=== PATIENT | male | born 1970 | race Caucasian/White ===

== ENCOUNTER 2016-09-05 13:49 | Outpatient (CLI) | payer MEDICAID | END 2016-09-05 13:50 | disposition home or self-care (01) | DX: M25.552 Pain in left hip (principal) ==

== ENCOUNTER 2016-10-03 12:37 | Emergency (ER) | payer MEDICAID | END 2016-10-03 13:50 | disposition home or self-care (01) | DX: S46.112A Strain of muscle, fascia and tendon of long head of biceps, left arm, initial encounter (principal); X50.0XXA Overexertion from strenuous movement or load, initial encounter; Y93.H1 Activity, digging, shoveling and raking; Y92.017 Garden or yard in single-family (private) house as the place of occurrence of the external cause; I10 Essential (primary) hypertension; E78.00 Pure hypercholesterolemia, unspecified ==

== ENCOUNTER 2017-02-11 08:20 | Outpatient (CLI) | payer MEDICAID ==
[2017-02-11 13:04] LABS: BASOPHILS # (AUTO) 0.1 10^3/uL (0.0-0.1); BASOPHILS % (AUTO) 1.1 %; EOSINOPHILS # (AUTO) 0.2 10^3/uL (0.0-0.7); EOSINOPHILS % (AUTO) 3.1 %; LYMPHOCYTES # (AUTO) 1.5 10^3/uL (1.5-3.5); LYMPHOCYTES % (AUTO) 26.9 %; MEAN CORPUSCULAR HEMOGLOBIN 30.6 pg (27.0-31.0); MEAN CORPUSCULAR HGB CONC 34.1 g/dL (32.0-36.0); MEAN CORPUSCULAR VOLUME 89.5 fL (80.0-94.0); MEAN PLATELET VOLUME 8.2 fL (7.4-11.4); MONOCYTES # (AUTO) 0.6 10^3/uL (0.0-1.0); MONOCYTES % (AUTO) 11.3 %; NEUTROPHILS # (AUTO) 3.3 10^3/uL (1.5-6.6); NEUTROPHILS % (AUTO) 57.6 %; NUCLEATED RED BLOOD CELLS AUTO 0.1 /100WBC; RED BLOOD COUNT 4.91 10^6/uL (4.70-6.10); RED CELL DISTRIBUTION WIDTH 13.1 % (12.0-15.0); UNCORRECTED WHITE BLOOD COUNT 5.7 x10^3/uL; WHITE BLOOD COUNT 5.7 x10^3/uL (4.8-10.8)
[2017-02-11 13:27] LABS: ALBUMIN/GLOBULIN RATIO 1.4 (1.0-2.2); BILIRUBIN,TOTAL 0.7 mg/dL (0.2-1.0); BUN - BLOOD UREA NITROGEN 12 mg/dL (6-20); CALCIUM 9.3 mg/dL (8.5-10.3); CARBON DIOXIDE - CO2 25 mmol/L (21-32); CHLORIDE 105 mmol/L (101-111); CHOL/HDL RATIO 6.6 (<5.0); CHOLESTEROL 245 mg/dL; CREATININE 0.9 mg/dL (0.6-1.2); GFR - MDRD 90 (>89); GLUCOSE 99 mg/dL (70-100); HDL CHOLESTEROL 37 mg/dL; LDL/HDL RATIO 4.8 (<3.6); POTASSIUM 4.2 mmol/L (3.5-5.0); SODIUM 138 mmol/L (135-145); TOTAL PROTEIN 7.7 g/dL (6.7-8.2); TRIGLYCERIDES 157 mg/dL; VLDL CHOLESTEROL 31 mg/dL
== END 2017-02-11 08:21 ==
LOC: LAB.N 08:20
PROVIDERS: ATTEND Physician Assistant
DX: E78.5 Hyperlipidemia, unspecified (principal); I10 Essential (primary) hypertension
CPT/HCPCS: 36415; 80053; 80061; 84443; 85025

== ENCOUNTER 2017-02-12 19:03 | Outpatient (CLI) | payer MEDICAID ==
--- NOTE | 2017-02-13 10:18 | Ultrasound Report ---
CAROTID DUPLEX: 02/12/2017 CLINICAL INDICATION: Left carotid bruit. TECHNIQUE: Real-time sonographic vascular imaging was performed by the linoleum tile layer through the carotid arteries utilizing both color-flow and Doppler spectral analysis. Multiple event sales representative static images were saved for review. Vessel PSV cm/sec 2D Plaque Estimate % ICA/CCA PSV EDV cm/sec % Stenosis RCCA Prox 81.1 -- RCCA Dist 76.8 15.1 RECA 114 -- RT BULB 42.7 -- 0.6 1.1 BROOKE Prox 90.2 -- 1.2 34.2 BROOKE Mid 94.7 -- 1.2 42.0 BROOKE Dist 49.6 -- 0.6 24.7 RVA 41.7 RVA flow direction: Antegrade. Vessel PSV cm/sec 2D Plaque Estimate % ICA/CCA PSV EDV cm/sec % Stenosis LCCA Prox 125.9 -- LCCA Dist 90.2 32.2 LECA 96.3 -- LFT BULB 74.2 -- 0.8 23.5 LICA Prox 50.3 -- 0.6 16.2 LICA Mid 44.9 -- 0.5 17.3 LICA Dist 66.0 -- 0.7 31.9 LVA 34.5 LVA flow direction: Antegrade. Velocity criteria are extrapolated from diameter data as defined by the Society of Radiologists in Ultrasound Consensus Conference Radiology 2003; 229; 340-346. Degree of Stenosis % ICA PSV cm/sec Plaque Estimate % ICA/CCA RSV Ratio ICA EDV cm/sec Normal < 125 None < 2.0 < 40 <50 < 125 < 50 < 2.0 < 40 50-69 125 - 130 >/= 50 2.0 - 4.0 40 - 100 >/= 70 but less than near occlusion > 230 >/= 50 > 4.0 > 100 Near occlusion High, low, or undetectable Visible lumen Variable Variable Total occlusion Undetectable No detectable lumen Not applicable Not applicable FINDINGS RIGHT: There is mild calcified plaquing in the right carotid bifurcation, without evidence of a focal hemodynamically significant stenosis. LEFT: There is mild plaquing in the left carotid bifurcation, without evidence of a focal hemodynamically significant stenosis. The vertebral arteries demonstrate antegrade flow bilaterally. IMPRESSION: NO EVIDENCE OF A FOCAL HEMODYNAMICALLY SIGNIFICANT CAROTID STENOSIS. [facility]
== END 2017-02-12 19:04 | disposition home or self-care (01) ==
LOC: DI 19:03
PROVIDERS: ATTEND Physician Assistant
DX: R09.89 Other specified symptoms and signs involving the circulatory and respiratory systems (principal)
CPT/HCPCS: 93880

== ENCOUNTER 2018-01-11 09:32 | Outpatient (CLI) | payer MEDICAID ==
[2018-01-11 12:53] LABS: CHOL/HDL RATIO 4.2 (<5.0); CHOLESTEROL 157 mg/dL; HDL CHOLESTEROL 37 mg/dL; LDL CHOLESTEROL,CALCULATED 94 mg/dL; LDL/HDL RATIO 2.5 (<3.6); VLDL CHOLESTEROL 26 mg/dL
== END 2018-01-11 09:33 | disposition home or self-care (01) ==
LOC: LAB.N 09:32
PROVIDERS: ATTEND Physician Assistant Medical
DX: E78.5 Hyperlipidemia, unspecified (principal)
CPT/HCPCS: 36415; 80061; 83721

== ENCOUNTER 2018-05-03 10:54 | Outpatient (CLI) | payer MEDICAID ==
[2018-05-03] MEDS ORDERED: IOPAMIDOL-300 50 ML VIAL ONE (11:21)
[2018-05-03] MEDS ORDERED: IOPAMIDOL-300 100 ML VIAL ONE ×2 (11:22→13:09)
[2018-05-03 12:15] LABS: CALCIUM 9.2 mg/dL (8.5-10.3); CREATININE 0.9 mg/dL (0.6-1.2)
[2018-05-03] MEDS ORDERED: IOPAMIDOL-300 50 ML VIAL PO ONE (13:56)
[2018-05-03] MEDS ORDERED: IOPAMIDOL-300 100 ML VIAL IVP ONE (13:56)
--- NOTE | 2018-05-03 16:28 | CT Report ---
Reason: CHANGE IN BOWEL HABIT, ABDOMINAL PAIN, LLQ Procedure Date: 05/03/2018 Accession Number: [id number] / [id number] Procedure: CT - Abdomen/Pelvis W/ CPT Code: FULL RESULT: EXAM: CT ABDOMEN AND PELVIS EXAM DATE: 05/03/2018 01:36 PM. CLINICAL HISTORY: CHANGE IN BOWEL HABIT, ABDOMINAL PAIN, LLQ. COMPARISONS: None. TECHNIQUE: Routine helical CT imaging was performed through the abdomen and pelvis. IV contrast: ISOVUE 300 100mL. Enteric contrast: No. Reconstructions: Coronal and sagittal. In accordance with CT protocol optimization, one or more of the following dose reduction techniques were utilized for this exam: automated exposure control, adjustment of mA and/or KV based on patient size, or use of iterative reconstructive technique. FINDINGS: Lung Bases: Small amount of pleural thickening left CP angle 6:38. Two 2 mm right base nodules image 9 and 4 of series 4 Liver: Normal. No masses. Gallbladder/Bile Ducts: Unremarkable. Spleen: Normal. Pancreas: Normal. Adrenal Glands: Normal. Kidneys: 1 cm inferior pole right renal cyst. No masses or hydronephrosis. Peritoneal Cavity/Bowel: No free fluid, free air or adenopathy. No masses or acute inflammatory process. The appendix is well seen and normal. Sigmoid diverticulosis without diverticulitis. Pelvic Organs: Normal. The bladder and visualized pelvic organs are within normal limits. Vasculature: No aneurysms or other significant abnormality. Bones: No significant abnormality. Other: None. IMPRESSION: Sigmoid diverticulosis without diverticulitis. 1 cm right renal cyst. Incidental changes bilateral lung bases. Otherwise negative abdomen and pelvis CT. [facility]
== END 2018-05-03 10:55 | disposition home or self-care (01) ==
LOC: DI 10:54
PROVIDERS: ATTEND Physician Assistant Medical
DX: K57.30 Diverticulosis of large intestine without perforation or abscess without bleeding (principal); R19.4 Change in bowel habit; R10.32 Left lower quadrant pain; Q61.01 Congenital single renal cyst
CPT/HCPCS: 36415; 74177; 80048; Q9967

== ENCOUNTER 2018-05-28 08:54 | Outpatient (CLI) | payer MEDICAID ==
[2018-05-28] MEDS ORDERED: IOPAMIDOL-300 100 ML VIAL ONE (09:04)
[2018-05-28] MEDS ORDERED: IOPAMIDOL-300 100 ML VIAL IVP ONE (09:33)
--- NOTE | 2018-05-28 15:10 | CT Report ---
Reason: MASS OF RIGHT LOWER LOBE OF LUNG Procedure Date: 05/28/2018 Accession Number: [id number] / [id number] Procedure: CT - Chest W/ CPT Code: FULL RESULT: EXAM: CT CHEST EXAM DATE: 05/28/2018 09:24 AM. CLINICAL HISTORY: Mass of right lower lobe of lung. COMPARISONS: Abdomen, pelvis with 05/03/2018 1:04 PM. TECHNIQUE: Routine helical CT imaging was performed through the chest. IV contrast: 80 mL Isovue-300. Reconstructions: Coronal and sagittal. In accordance with CT protocol optimization, one or more of the following dose reduction techniques were utilized for this exam: automated exposure control, adjustment of mA and/or KV based on patient size, or use of iterative reconstructive technique. FINDINGS: Lungs/Pleura: There is a 5 mm nodule in the right lower lobe on image 37 series 4 as well as a 5 mm nodule on image 32 of series 4 in the right lower lobe. Additional nodules measuring 3 mm or less are identified. No bronchial thickening, consolidation, or edema. Pulmonary vasculature is normal. No pericardial or pleural effusion. No pneumothorax. Mediastinum: No adenopathy or masses. Heart is normal. Note is made of coronary calcifications. The thoracic aorta is grossly unremarkable. Bones: No aggressive osseous lesion is identified. Visualized Abdomen: Unremarkable. Other: None. IMPRESSION: Scattered pulmonary nodules measuring 5 mm or less. No lung mass is detected. In a low risk patient such as a non-smoker with no history of cancer a follow-up CT in 12 months is recommended. If the patient has risk factors for malignancy, recommend initial follow-up CT at 6 months. [facility]
== END 2018-05-28 08:55 | disposition home or self-care (01) ==
LOC: DI 08:54
PROVIDERS: ATTEND Physician Assistant Medical
DX: R91.8 Other nonspecific abnormal finding of lung field (principal)
CPT/HCPCS: 71260; Q9967

== ENCOUNTER 2018-12-17 03:31 | Emergency (ER) | payer MEDICAID ==
[2018-12-17] MEDS ORDERED: ACETAMINOPHEN 1,000 MG/100 ML 100 ML IV STA (03:55)
--- NOTE | 2018-12-17 04:09 | ED Physician Documentation ---
PD HPI ABD PAIN - Stated complaint Stated Complaint: BACK PX/MALE - Chief complaint Chief Complaint: Abd Pain - History obtained from History obtained from: Patient - History of Present Illness Timing - onset: Yesterday Timing - duration: Days (1) Timing - details: Gradual onset Pain level max: 7 Pain level now: 6 Quality: Aching, Pain Location: Other (states all over abdomen, but also R flank and RLQ and R groin.) Improved by: Other (nothing) Worsened by: Other (nothing) Associated symptoms: Other (states unable to urinate well tonight. no medication changes. no surgery.). No: Fever, Nausea, Vomiting, Hematemesis, Diarrhea, Constipation, Melena, Hematochezia, Dysuria Similar symptoms before: Has not had sx before Recently seen: Not recently seen Review of Systems Constitutional: denies: Fever, Chills Respiratory: denies: Cough GI: denies: Vomiting, Diarrhea : denies: Dysuria Skin: denies: Rash Musculoskeletal: denies: Neck pain, Back pain Neurologic: denies: Headache PD PAST MEDICAL HISTORY - Past Medical History Cardiovascular: Hypertension, High cholesterol - Past Surgical History Past Surgical History: No - Present Medications Home Medications: Ambulatory Orders Medication Instructions Recorded Confirmed Acyclovir 400 mg PO BID 05/04/15 05/04/15 Cyclobenzaprine [Flexeril] 05/04/15 05/04/15 Lisinopril 20 mg PO DAILY 05/04/15 05/04/15 Lovastatin 10 mg PO DAILY 05/04/15 05/04/15 Hydrocodone/Acetaminophen [[place] 1 each PO Q6H PRN #20 tablet 02/11/16 5-325 Tablet] Hydrocodone/Acetaminophen [Vicodin 02/11/16 Es 7.5-300 mg Tablet] Methocarbamol [Robaxin] 500 mg PO Q6H PRN #30 tablet 02/11/16 Naproxen 375 mg PO BID #20 tablet 02/11/16 Tramadol HCl 50 mg PO Q6H PRN #25 tablet 02/11/16 oxyCODONE [Roxicodone] 5 mg 02/11/16 HYDROcod/ACETAM 5/325 [[place] 5/325] 1 - 2 ea PO Q6H PRN #15 tablet 10/03/16 Hydrocodone/Acetaminophen 1 - 2 each PO Q6H PRN #14 tablet 12/17/18 [Hydrocodon-Acetaminophen 5-325] Ibuprofen [Motrin] 800 mg PO Q8H PRN #30 tablet 12/17/18 Ondansetron Odt [Zofran] 4 mg TL Q6H PRN #10 tablet 12/17/18 - Allergies Allergies/Adverse Reactions: Allergies Allergy/AdvReac Type Severity Reaction Status Date / Time ketorolac tromethamine * AdvReac Mild Unknown Verified 12/17/18 03:46 [From Toradol] - Social History Does the pt smoke?: No Smoking Status: Never smoker Does the pt drink ETOH?: Yes Does the pt have substance abuse?: No - Immunizations Immunizations are current?: Yes PD ED PE NORMAL - Vitals Vital signs reviewed: Yes - General General: Alert and oriented X 3, No acute distress - HEENT HEENT: Moist mucous membranes, Pharynx benign - Neck Neck: Supple, no meningeal sign - Cardiac Cardiac: RRR - Respiratory Respiratory: No respiratory distress, Clear bilaterally - Abdomen Abdomen: Soft, Non tender, Non distended - Back Back: No CVA TTP, No spinal TTP - Derm Derm: Warm and dry - Extremities Extremities: No deformity - Neuro Neuro: Alert and oriented X 3 - Psych Psych: Normal mood, Normal affect Results - Vitals Vitals: Vital Signs - 24 hr 12/17/18 12/17/18 12/17/18 03:40 04:18 04:44 Temperature 36.1 C L Heart Rate 66 65 64 Respiratory 18 17 16 Rate Blood Pressure 166/97 H 144/94 H O2 Saturation 96 95 94 Oxygen O2 Source Room air - Labs Labs: Laboratory Tests 12/17/18 12/17/18 12/17/18 04:00 04:00 05:20 WBC 6.2 RBC 4.85 Hgb 14.5 Hct 42.9 MCV 88.5 MCH 30.0 MCHC 33.9 RDW 12.5 Plt Count 217 MPV 8.0 Neut # (Auto) 3.6 Lymph # (Auto) 1.5 [place] # (Auto) 0.8 Eos # (Auto) 0.3 Baso # (Auto) 0.1 Absolute Nucleated RBC 0.00 Nucleated RBC % 0.0 Sodium 140 Potassium 4.1 Chloride 102 Carbon Dioxide 27 Anion Gap 11.0 BUN 13 Creatinine 1.1 Estimated GFR (MDRD) 71 L Glucose 103 H Calcium 9.7 Total Bilirubin 0.8 AST 41 ALT 56 Alkaline Phosphatase 61 Total Protein 7.5 Albumin 4.3 Globulin 3.2 Albumin/Globulin Ratio 1.3 Lipase 41 Urine Color YELLOW Urine Clarity CLEAR Urine pH 6.5 Ur Specific [place] <=1.005 Urine Protein NEGATIVE Urine Glucose (UA) NEGATIVE Urine Ketones NEGATIVE Urine Occult Blood TRACE-INTA Urine Nitrite NEGATIVE Urine Bilirubin NEGATIVE Urine Urobilinogen 0.2 (NORMAL) Ur Leukocyte Esterase NEGATIVE Ur Microscopic Review NOT INDICATED Urine Culture Comments NOT INDICATED - Rads (name of study) CT abdomen pelvis Radiology: Prelim report reviewed, EMP read contemporaneously, See rad report (Mildly obstructing 3 x 2 mm stone in the proximal right ureter. 2. Appendix appears normal. 3. Possible mild fatty infiltration of the liver. ) PD MEDICAL DECISION MAKING - ED course Complexity details: reviewed results, re-evaluated patient, considered differential, d/w patient ED course: 48-year-old male with a proximal right ureteral stone, 3 x 2 mm. Pain well controlled in the emergency department. No evidence of UTI. Will place on pain medication for home and follow-up with his doctor. Patient counseled regarding signs and symptoms for which I believe and urgent re-evaluation would be necessary. Patient with good understanding of and agreement to plan and is comfortable going home at this time This document was made in part using voice recognition software. While efforts are made to proofread this document, sound alike and grammatical errors may occur. Departure - Departure Disposition: 01 Home, Self Care Clinical Impression: Ureterolithiasis Condition: Good Instructions: ED Stone Renal W Colic Follow-Up: Carlos Laura PA-C [Primary Care Provider] - Within 1 week Prescriptions: Hydrocodone/Acetaminophen [Hydrocodon-Acetaminophen 5-325] 1 - 2 each PO Q6H PRN #14 tablet PRN Reason: pain Ibuprofen [Motrin] 800 mg PO Q8H PRN #30 tablet PRN Reason: PAIN &/OR FEVER Ondansetron Odt [Zofran] 4 mg TL Q6H PRN #10 tablet PRN Reason: Nausea / Vomiting Comments: Drink plenty of water. Return if you worsen. You have a 3 x 2 mm stone in the proximal right ureter. This should pass on its own. Return especially for uncontrolled pain or fevers. Do not drink alcohol or drive while on narcotic pain medicine. Note that many narcotic pain relievers also contain tylenol/acetaminophen. Please ensure that your total dose of acetaminophen from all sources does not exceed 3 grams (3000mg) per day. You may constipated on this medication, take a stool softener such as "Colace" twice a day while you are on it. Also recommend a [id number] laxative such as senna or MiraLAX any day that you do not have a bowel movement. If you received narcotic pain medication in the emergency department, do not drive or operate machinery for the next 24 hours.
[2018-12-17 04:16] LABS: BASOPHILS # (AUTO) 0.1 10^3/uL (0.0-0.1); BASOPHILS % (AUTO) 1.6 %; EOSINOPHILS # (AUTO) 0.3 10^3/uL (0.0-0.7); EOSINOPHILS % (AUTO) 4.6 %; HGB - HEMOGLOBIN 14.5 g/dL (14.0-18.0); LYMPHOCYTES # (AUTO) 1.5 10^3/uL (1.5-3.5); LYMPHOCYTES % (AUTO) 23.5 %; MEAN CORPUSCULAR HGB CONC 33.9 g/dL (32.0-36.0); MEAN CORPUSCULAR VOLUME 88.5 fL (80.0-94.0); MONOCYTES # (AUTO) 0.8 10^3/uL (0.0-1.0); MONOCYTES % (AUTO) 12.1 %; NEUTROPHILS # (AUTO) 3.6 10^3/uL (1.5-6.6); NEUTROPHILS % (AUTO) 58.2 %; PLT - PLATELET COUNT 217 10^3/uL (130-450); RED BLOOD COUNT 4.85 10^6/uL (4.70-6.10); RED CELL DISTRIBUTION WIDTH 12.5 % (12.0-15.0); WHITE BLOOD COUNT 6.2 x10^3/uL (4.8-10.8)
[2018-12-17 04:33] LABS: ALBUMIN 4.3 g/dL (3.2-5.5); ALBUMIN/GLOBULIN RATIO 1.3 (1.0-2.2); BILIRUBIN,TOTAL 0.8 mg/dL (0.2-1.0); CALCIUM 9.7 mg/dL (8.5-10.3); CREATININE 1.1 mg/dL (0.6-1.2); TOTAL PROTEIN 7.5 g/dL (6.7-8.2)
[2018-12-17] MEDS ORDERED: IOVERSOL 320 100 ML VIAL IVP ONE ×2 (04:43→06:05)
--- NOTE | 2018-12-17 05:19 | CT Report ---
Reason: R lower abd pain Procedure Date: 12/17/2018 Accession Number: [id number] / [id number] Procedure: CT - Abdomen/Pelvis W CPT Code: FULL RESULT: EXAM: CT ABDOMEN AND PELVIS EXAM DATE: 12/17/2018 04:56 AM. CLINICAL HISTORY: Right lower abdominal pain. COMPARISONS: ABDOMEN/PELVIS W/ 05/03/2018 1:04 PM. TECHNIQUE: Routine helical CT imaging was performed through the abdomen and pelvis. IV contrast: 100 ML OPTIRAY 320. Enteric contrast: No. Reconstructions: Coronal and sagittal. In accordance with CT protocol optimization, one or more of the following dose reduction techniques were utilized for this exam: automated exposure control, adjustment of mA and/or KV based on patient size, or use of iterative reconstructive technique. FINDINGS: Lung Bases: Mild bibasilar atelectasis. Liver: Possible mild fatty infiltration. Gallbladder/Bile Ducts: Unremarkable. Spleen: Normal. Pancreas: Normal. Adrenal Glands: Normal. Kidneys: Mild obstructive uropathy on the right with stone in the proximal ureter measuring 4 x 3 mm, series 3 image 49. Left kidney is unremarkable. Peritoneal Cavity/Bowel: No bowel obstruction seen. Colonic diverticula without evidence of diverticulitis. No free air or free fluid. Normal sized mesenteric lymph nodes. Appendix appears normal. Pelvic Organs: Normal. The bladder and visualized pelvic organs are within normal limits. Vasculature: No aneurysms or other significant abnormality. Bones: No significant abnormality. Other: None. IMPRESSION: 1. Mildly obstructing 3 x 2 mm stone in the proximal right ureter. 2. Appendix appears normal. 3. Possible mild fatty infiltration of the liver. [facility]
[2018-12-17 05:34] LABS: BILIRUBIN,URINE NEGATIVE (NEGATIVE); GLUCOSE, URINE (UA) NEGATIVE (NEGATIVE); KETONES,URINE (UA) NEGATIVE (NEGATIVE); LEUKOCYTE ESTERASE, URINE NEGATIVE (NEGATIVE); NITRITE,URINE NEGATIVE (NEGATIVE); OCCULT BLOOD,URINE TRACE-INTA (NEGATIVE); PH,URINE 6.5 PH (5.0-7.5); PROTEIN,URINE NEGATIVE (NEGATIVE); UROBILINOGEN,URINE 0.2 (NORMAL) E.U./dL (NORMAL)
[2018-12-17 05:45] LABS: CLARITY,URINE CLEAR (CLEAR)
[2018-12-17 05:55] VITALS: BP 124/94
== END 2018-12-17 05:54 | disposition home or self-care (01) ==
LOC: ED 03:31
DX: N20.1 Calculus of ureter (principal); I10 Essential (primary) hypertension
CPT/HCPCS: 36415; 74177; 80053; 81003; 83690; 85025; 96365; 99284; J0131; Q9967; 81001; 87086

== ENCOUNTER 2020-12-26 06:00 | Outpatient (CLI) | payer MEDICAID ==
[2020-12-26 11:50] LABS: BASOPHILS % (AUTO) 0.7 %; EOSINOPHILS # (AUTO) 0.2 10^3/uL (0.0-0.7); EOSINOPHILS % (AUTO) 2.8 %; HGB - HEMOGLOBIN 15.5 g/dL (14.0-18.0); LYMPHOCYTES # (AUTO) 1.4 10^3/uL (1.5-3.5); MEAN CORPUSCULAR HEMOGLOBIN 31.2 pg (27.0-31.0); MEAN CORPUSCULAR HGB CONC 34.4 g/dL (32.0-36.0); MEAN CORPUSCULAR VOLUME 90.5 fL (80.0-94.0); MONOCYTES # (AUTO) 0.6 10^3/uL (0.0-1.0); MONOCYTES % (AUTO) 10.7 %; NEUTROPHILS # (AUTO) 3.8 10^3/uL (1.5-6.6); NEUTROPHILS % (AUTO) 62.6 %; PLT - PLATELET COUNT 241 10^3/uL (130-450); RED BLOOD COUNT 4.97 10^6/uL (4.70-6.10); RED CELL DISTRIBUTION WIDTH 12.3 % (12.0-15.0)
[2020-12-26 12:30] LABS: ALBUMIN 4.6 g/dL (3.2-5.5); ALBUMIN/GLOBULIN RATIO 1.6 (1.0-2.2); ALKALINE PHOSPHATASE 77 IU/L (42-121); ALT ALANINE AMINOTRANSFERASE 53 IU/L (10-60); AST ASPARTATE AMINOTRANSFERASE 38 IU/L (10-42); BUN - BLOOD UREA NITROGEN 11 mg/dL (6-20); CALCIUM 9.1 mg/dL (8.5-10.3); CARBON DIOXIDE - CO2 27 mmol/L (21-32); CHLORIDE 101 mmol/L (101-111); CHOL/HDL RATIO 4.9 (<5.0); CHOLESTEROL 158 mg/dL; CREATININE 0.9 mg/dL (0.6-1.2); GFR - MDRD 89 (>89); GLUCOSE 109 mg/dL (70-100); HDL CHOLESTEROL 32 mg/dL; LDL CHOLESTEROL,CALCULATED 106 mg/dL; LDL/HDL RATIO 3.3 (<3.6); POTASSIUM 4.2 mmol/L (3.5-5.0); SODIUM 139 mmol/L (135-145); TOTAL PROTEIN 7.5 g/dL (6.7-8.2); TRIGLYCERIDES 100 mg/dL; VLDL CHOLESTEROL 20 mg/dL
== END 2020-12-26 23:59 | disposition home or self-care (01) ==
LOC: LAB.WCP 06:00
PROVIDERS: ATTEND Family Medicine
DX: I10 Essential (primary) hypertension (principal); E78.5 Hyperlipidemia, unspecified; Z12.5 Encounter for screening for malignant neoplasm of prostate
CPT/HCPCS: 36415; 80053; 80061; 83721; 84153; 85025

== ENCOUNTER 2020-12-28 08:00 | Outpatient (CLI) | payer MEDICAID ==
[2020-12-28 20:18] LABS: FECAL OCCULT BLOOD (FIT) NEGATIVE (NEGATIVE)
== END 2020-12-28 23:59 | disposition home or self-care (01) ==
LOC: LAB.R 08:00
PROVIDERS: ATTEND Family Medicine
DX: Z12.11 Encounter for screening for malignant neoplasm of colon (principal)
CPT/HCPCS: 82274

== ENCOUNTER 2022-01-11 14:34 | Outpatient (CLI) | payer OTHER | END 2022-01-11 14:35 | disposition home or self-care (01) | LOC: LAB.N 14:34 | PROVIDERS: ATTEND Nurse Practitioner Family | DX: Z53.9 Procedure and treatment not carried out, unspecified reason (principal) ==

== ENCOUNTER 2022-03-28 09:21 | Outpatient (CLI) | payer MEDICAID ==
--- NOTE | 2022-03-28 15:30 | CT Report ---
PROCEDURE: CHEST WO INDICATIONS: LUNG NODULE TECHNIQUE: Noncontrast 1mm axial images were acquired from the pulmonary apices to the posterior costophrenic an gles. Axial 5 mm soft tissue kernel reconstructions were performed as well as 8 mm axial MIP and cor onal and sagittal 5 mm reformations. For radiation dose reduction, the following was used: automate d exposure control, adjustment of mA and/or kV according to patient size. COMPARISON: CT chest May 28, 2018 FINDINGS: Image quality: Excellent. Lungs and pleura: No acute air space opacities. No pleural effusions or pneumothorax. Central and peripheral airways are patent and normal in caliber. Since the prior examination the previously noted pulmonary nodular densities are stable and are consi stent with benign process. There does appear to be some significant coronary artery calcifications. Mediastinum: Heart size is normal. No pericardial effusion. No mediastinal adenopathy by size crit eria. Thoracic aorta and central pulmonary arteries are normal in size. Esophagus is normal in zack mikel. No hiatal hernia. Bones and chest wall: No suspicious bony lesions. No vertebral body compression fractures. No axil indira or supraclavicular adenopathy by size criteria. The thyroid is normal in size and there are no incidental findings. Abdomen: Visualized upper abdominal solid organs and bowel loops appear normal in the absence of con trast. IMPRESSION: 1. Stable benign not pulmonary nodularity. 2. No acute findings identified within the chest. 3. Significant coronary artery calcifications present. ) Reviewed by: Jordan Chester MD on 03/28/2022 3:29 PM PDT Approved by: Jordan Chester MD on 03/28/2022 3:29 PM PDT Station ID: [id number]
== END 2022-03-28 09:22 | disposition home or self-care (01) ==
LOC: DI 09:21
PROVIDERS: ATTEND Nurse Practitioner Family
DX: R91.8 Other nonspecific abnormal finding of lung field (principal); I25.10 Atherosclerotic heart disease of native coronary artery without angina pectoris

== ENCOUNTER 2023-07-02 11:12 | Outpatient (CLI) | payer OTHER, MEDICAID ==
[2023-07-02 17:53] LABS: BASOPHILS # (AUTO) 0.1 10^3/uL (0.0-0.1); BASOPHILS % (AUTO) 1.2 %; EOSINOPHILS # (AUTO) 0.3 10^3/uL (0.0-0.7); EOSINOPHILS % (AUTO) 3.6 %; HCT - HEMATOCRIT 44.9 % (42.0-52.0); HGB - HEMOGLOBIN 15.1 g/dL (14.0-18.0); LYMPHOCYTES # (AUTO) 2.1 10^3/uL (1.5-3.5); LYMPHOCYTES % (AUTO) 30.6 %; MEAN CORPUSCULAR HEMOGLOBIN 30.5 pg (27.0-31.0); MEAN CORPUSCULAR HGB CONC 33.6 g/dL (32.0-36.0); MEAN CORPUSCULAR VOLUME 90.7 fL (80.0-94.0); MEAN PLATELET VOLUME 10.1 fL (7.4-11.4); MONOCYTES # (AUTO) 0.6 10^3/uL (0.0-1.0); MONOCYTES % (AUTO) 9.1 %; NEUTROPHILS # (AUTO) 3.8 10^3/uL (1.5-6.6); NEUTROPHILS % (AUTO) 55.2 %; PLT - PLATELET COUNT 233 10^3/uL (130-450); RED BLOOD COUNT 4.95 10^6/uL (4.70-6.10); RED CELL DISTRIBUTION WIDTH 12.1 % (12.0-15.0); WHITE BLOOD COUNT 6.9 x10^3/uL (4.8-10.8)
[2023-07-02 18:12] LABS: ALBUMIN 4.5 g/dL (3.2-5.5); ALBUMIN/GLOBULIN RATIO 1.6 (1.0-2.2); ALKALINE PHOSPHATASE 62 IU/L (42-121); ALT ALANINE AMINOTRANSFERASE 40 IU/L (10-60); AST ASPARTATE AMINOTRANSFERASE 29 IU/L (10-42); BILIRUBIN,TOTAL 0.5 mg/dL (0.2-1.0); BUN - BLOOD UREA NITROGEN 14 mg/dL (6-20); CALCIUM 9.6 mg/dL (8.5-10.3); CARBON DIOXIDE - CO2 28 mmol/L (21-32); CHLORIDE 104 mmol/L (101-111); CHOL/HDL RATIO 6.1 (<5.0); CHOLESTEROL 226 mg/dL; CREATININE 0.9 mg/dL (0.6-1.3); GFR - MDRD 88 (>89); GLUCOSE 89 mg/dL (74-104); HDL CHOLESTEROL 37 mg/dL; LDL CHOLESTEROL,CALCULATED 150 mg/dL; LDL/HDL RATIO 4.1 (<3.6); POTASSIUM 4.2 mmol/L (3.5-4.5); SODIUM 139 mmol/L (135-145); TOTAL PROTEIN 7.3 g/dL (6.4-8.9); TRIGLYCERIDES 197 mg/dL (48-352); VLDL CHOLESTEROL 39 mg/dL
[2023-07-02 18:18] LABS: THYROID STIMULATING HORMONE 1.29 uIU/mL (0.34-5.60)
== END 2023-07-02 11:13 | disposition home or self-care (01) ==
LOC: LAB.N 11:12
PROVIDERS: ATTEND Nurse Practitioner Family
DX: I10 Essential (primary) hypertension (principal); E78.5 Hyperlipidemia, unspecified; Z12.5 Encounter for screening for malignant neoplasm of prostate
CPT/HCPCS: 36415; 80053; 80061; 83721; 84153; 84443; 85025